=== PATIENT | male | born 1940 | race Caucasian/White ===

== ENCOUNTER 2017-06-01 21:07 | Emergency (ER) | payer MEDICARE ==
[~2017-06-01] VITALS: Ht 172.7 cm; Wt 113.2 kg
[2017-06-01 21:11] VITALS: BP 151/78; PULSE 81; RESP 20; TEMP 101; O2SAT 93
[2017-06-01 21:15] VITALS: BP 151/78; PULSE 81; RESP 20; TEMP 101; O2SAT 93
[2017-06-01] MEDS ORDERED: CEFEPIME INJ 2,000 MG in SODIUM CHLORIDE 0.9% INJ 100 ML IV STA (21:22)
--- NOTE | 2017-06-01 21:31 | PD ---
HPI Chief Complaint: General Weakness Time Seen by Provider: 21:22 Travel History International Travel<30 days: No Contact w/Intl Traveler<30days: No Traveled to known affect area: No History of Present Illness HPI pt c/o of one day of gen weakness, cough, and also a suprapubic discomfort though he denies n/v/d/backpain/cp/[place]......no aggravating/alleviating factors. 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), htn, hypercholesterol PFSH Social History Tobacco Use: No Allergies-Medications (Allergen,Severity, Reaction): Coded Allergies: No Known Allergies (Verified Allergy, Unknown, 06/01/17) Reported Meds & Prescriptions Reported Meds & Active Scripts Active Augmentin (Amoxicillin-Clavulanate) 875-125 Mg Tab 1 Tab PO BID Reported Multi-Vitamin Daily (Multiple Vitamin) 1 Tab Tab 1 Tab PO DAILY Metoprolol Tartrate 50 Mg Tab 50 Mg PO DAILY Eliquis (Apixaban) 5 Mg Tab 5 Mg PO BID Crestor (Rosuvastatin Calcium) 20 Mg Tab 20 Mg PO DAILY Review of Systems Except as stated in HPI: all other systems reviewed are Neg General / Constitutional: Positive: Fever Eyes: No: Visual changes HENT: No: Headaches Cardiovascular: No: Chest Pain or Discomfort Respiratory: Positive: Cough Gastrointestinal: No: Abdominal Pain Genitourinary: Positive: Frequency Musculoskeletal: No: Pain Skin: No Rash Neurologic: No: Weakness Psychiatric: No: Depression Endocrine: No: Polydipsia Hematologic/Lymphatic: No: Easy Bruising Physical Exam Narrative GENERAL: SKIN: Warm and dry. HEAD: Atraumatic. Normocephalic. EYES: Pupils equal and round. No scleral icterus. No injection or drainage. ENT: No nasal bleeding or discharge. Mucous membranes pink and moist. NECK: Trachea midline. No JVD. CARDIOVASCULAR: Regular rate and rhythm. RESPIRATORY: No accessory muscle use. Clear to auscultation. Breath sounds equal bilaterally. GASTROINTESTINAL: Abdomen soft, non-tender, nondistended. MUSCULOSKELETAL: Extremities without clubbing, cyanosis, or edema. No obvious deformities. NEUROLOGICAL: Awake and alert. No obvious cranial nerve deficits. Motor grossly within normal limits. Five out of 5 muscle strength in the arms and legs. Normal speech. PSYCHIATRIC: Appropriate mood and affect; insight and judgment normal. Data Data Last Documented VS Orders Orders Complete Blood Count With Diff (06/01/17 21:22) Comprehensive Metabolic Panel (06/01/17 21:22) Prothrombin Time / Inr (Pt) (06/01/17 21:22) Act Partial Throm Time (Ptt) (06/01/17 21:22) Lactic Acid Sepsis Protocol (06/01/17 21:22) Lipase (06/01/17 21:22) Troponin I (06/01/17:) Urinalysis - C+S If Indicated (06/01/17 21:22) Influenzae A/B Antigen (06/01/17 21:22) Blood Culture (06/01/17 21:22) Chest, Single Ap (06/01/17:) Blood Glucose (06/01/17 21:22) Ecg Monitoring (06/01/17:22) Iv Access Insert/Monitor (06/01/17 21:22) Oximetry (06/01/17 21:22) Oxygen Administration (06/01/17:22) Ct Abd/Pel W/O Iv Contrast (06/01/17 21:22) Cefepime Inj (Maxipime Inj) (06/01/17 21:22) Acetaminophen (Tylenol) (06/01/17 21:45) Urine Culture (06/01/17 21:30) Ed Discharge Order (06/01/17 23:02) Labs Laboratory Tests Test 06/01/17 21:30 White Blood Count 7.6 TH/MM3 Red Blood Count 4.24 MIL/MM3 Hemoglobin 13.1 GM/DL Hematocrit 38.9 % Mean Corpuscular Volume 91.7 FL Mean Corpuscular Hemoglobin 31.0 PG Mean Corpuscular Hemoglobin Concent 33.8 % Red Cell Distribution Width 15.0 % Platelet Count 164 TH/MM3 Mean Platelet Volume 7.8 FL Neutrophils (%) (Auto) 74.7 % Lymphocytes (%) (Auto) 15.4 % Monocytes (%) (Auto) 9.4 % Eosinophils (%) (Auto) 0.3 % Basophils (%) (Auto) 0.2 % Neutrophils # (Auto) 5.7 TH/MM3 Lymphocytes # (Auto) 1.2 TH/MM3 Monocytes # (Auto) 0.7 TH/MM3 Eosinophils # (Auto) 0.0 TH/MM3 Basophils # (Auto) 0.0 TH/MM3 CBC Comment DIFF FINAL Differential Comment Prothrombin Time 11.1 SEC Prothromb Time International Ratio 1.0 RATIO Activated Partial Thromboplast Time 31.2 SEC Urine Collection Type CLEAN CATCH Urine Color YELLOW Urine Turbidity MOD Urine pH 6.0 Urine Specific [place] 1.020 Urine Protein 30 mg/dL Urine Glucose (UA) NEG mg/dL Urine Ketones NEG mg/dL Urine Occult Blood MOD Urine Nitrite NEG Urine Bilirubin NEG Urine Leukocyte Esterase MOD Urine RBC 15-19 /hpf Urine WBC 50-99 /hpf Urine WBC Clumps FEW Urine Squamous Epithelial Cells 0-5 /hpf Urine Bacteria OCC /hpf Urine Mucus FEW /lpf Microscopic Urinalysis Comment CULTURE INDICATED Blood Urea Nitrogen 14 MG/DL Creatinine 1.20 MG/DL Random Glucose 148 MG/DL Total Protein 7.4 GM/DL Albumin 3.0 GM/DL Calcium Level 7.9 MG/DL Alkaline Phosphatase 96 U/L Aspartate Amino Transf (AST/SGOT) 28 U/L Alanine Aminotransferase (ALT/SGPT) 33 U/L Total Bilirubin 0.5 MG/DL Sodium Level 136 MEQ/L Potassium Level 3.8 MEQ/L Chloride Level 102 MEQ/L Carbon Dioxide Level 24.9 MEQ/L Anion Gap 9 MEQ/L Estimat Glomerular Filtration Rate 59 ML/MIN Lactic Acid Level 1.2 mmol/L Troponin I LESS THAN 0.02 NG/ML Lipase 155 U/L [facility] Medical Decision Making Medical Screen Exam Complete: Yes Emergency Medical Condition: Yes Medical Record Reviewed: Yes Differential Diagnosis uti v pna v colitis v divertic Narrative Course lactic acid was not elevated, neither wast there any leukocytosis, nor any left shift. ct neg for colitis but does show some diverticulosis without - itis.....patient given cefepime iv and sent home with augmentin Sepsis Criteria SIRS Criteria (2 or more): Temp > 100.9 or < 96.8, RR > 20 or PaCO2 < 32 Diagnosis Primary Impression: ascending cystitis Additional Impression: diverticulosis Patient Instructions: Diverticulosis Diet (GEN), General Instructions, Urinary Tract Infection in Men (DC) Scripts Amoxicillin-Clavulanate (Augmentin) 875-125 Mg Tab 1 TAB PO BID for Infection, #20 TAB 0 Refills Prov: Bo Mike MD 06/01/17 Disposition: 01 DISCHARGE HOME Condition: Stable Bo Mike MD Jun 01, 2017 21:31
[2017-06-01 21:35] VITALS: O2SAT 95
[2017-06-01] MEDS ORDERED: ACETAMINOPHEN 500 MG CPLT PO ONE (21:45)
--- NOTE | 2017-06-01 21:52 | RADRPT ---
EXAM DATE/TIME: 06/01/2017 21:28 [facility] COMPARISON: No previous studies available for comparison. INDICATIONS : Cough, short of breath, and fever. MEDICAL HISTORY : None. SURGICAL HISTORY : None. ENCOUNTER: Initial ACUITY: 3 days PAIN SCORE: 0/10 LOCATION: Bilateral chest FINDINGS: A single view of the chest demonstrates the lungs to be symmetrically aerated without evidence of mas s, infiltrate or effusion. The cardiomediastinal contours are unremarkable. Osseous structures are intact. CONCLUSION: No acute disease. Yobani Nieves MD on June 01, 2017 at 21:50 Board Certified Radiologist. This report was verified electronically.
[2017-06-01] MEDS ORDERED: ROSU20 PO (21:59)
[2017-06-01] MEDS ORDERED: APIX5TAB PO (21:59)
[2017-06-01] MEDS ORDERED: METO50TA PO (21:59)
[2017-06-01] MEDS ORDERED: MULT-65 PO (21:59)
[2017-06-01 22:00] VITALS: BP 173/70; PULSE 77; RESP 20; TEMP 98.5; O2SAT 96
[2017-06-01 22:06] LABS: AUTOMATED NEUTROPHIL # 5.7 TH/MM3 (1.8-7.7); BASOPHIL % 0.2 % (0.0-2.0); BLOOD, URINE MOD (NEG); EOSINOPHIL % 0.3 % (0.0-4.0); GLUCOSE,URINE NEG (NEG); HEMATOCRIT 38.9 % (39.0-51.0); KETONE, URINE NEG (NEG); LYMPH % 15.4 % (9.0-44.0); LYMPHOCYTE # 1.2 TH/MM3 (1.0-4.8); MEAN CELL VOLUME 91.7 FL (80.0-100.0); MEAN CORPUSCULAR HGB CONC 33.8 % (32.0-36.0); MONO % 9.4 % (0.0-8.0); NEUT % 74.7 % (16.0-70.0); NITRITE,URINE NEG (NEG); PLATELET COUNT 164 TH/MM3 (150-450); RED BLOOD COUNT 4.24 MIL/MM3 (4.50-5.90); WHITE BLOOD COUNT 7.6 TH/MM3 (4.0-11.0)
[2017-06-01 22:07] LABS: HEMO FLAGS DIFF FINAL
[2017-06-01 22:12] LABS: CHLORIDE 102 MEQ/L (98-107); POTASSIUM 3.8 MEQ/L (3.5-5.1); SODIUM (NA) 136 MEQ/L (136-145)
[2017-06-01 22:13] LABS: METHOD OF COLLECTION CLEAN CATCH; MUCUS URINE FEW /lpf (OCC); URINE COLOR YELLOW (YELLW/STRAW)
--- NOTE | 2017-06-01 22:13 | RADRPT ---
EXAM DATE/TIME: 06/01/2017 21:45 [facility] COMPARISON: No previous studies available for comparison. INDICATIONS : Generalized weakness. Suprapubic pain and frequent urination. ORAL CONTRAST: No oral contrast ingested. RADIATION DOSE: 24.49 CTDIvol (mGy) MEDICAL HISTORY : None SURGICAL HISTORY : Total knee replacement, left. Fusion, lumbar.Hip replacement ENCOUNTER: Initial ACUITY: 1 day PAIN SCALE: 0/10 LOCATION: suprapubic TECHNIQUE: Volumetric scanning of the abdomen and pelvis was performed. Using automated exposure control and ad justment of the mA and/or kV according to patient size, radiation dose was kept as low as reasonably achievable to obtain optimal diagnostic quality images. DICOM format image data is available electro nically for review and comparison. FINDINGS: Left total hip arthroplasty. There is scarring at both lung bases. Liver, gallbladder, pancreas, adre nals, kidneys unremarkable. Calcified splenic granulomas are noted. There is atherosclerotic calcific ation of the aorta and iliac vessels. Urinary bladder unremarkable. Diverticulosis of the sigmoid and descending colon. No diverticulitis. No obstruction, free fluid, or free air. Appendix normal. No ad enopathy. Small hiatal hernia. Degenerative changes of the spine are present. Prostate unremarkable. CONCLUSION: 1. Basilar pulmonary scarring. 2. Diverticulosis. 3. Small hiatal hernia. 4. Calcified splenic granulomas. Yobani Nieves MD on June 01, 2017 at 22:09 Board Certified Radiologist. This report was verified electronically.
[2017-06-01 22:14] LABS: RBC, URINE 15-19 /hpf (0-3); SQUAMOUS EPITHELIAL CELL URINE 0-5 /hpf (0-5)
[2017-06-01 22:15] LABS: BACTERIA, URINE OCC /hpf
[2017-06-01 22:16] LABS: ANION GAP 9 MEQ/L (5-15); BICARBONATE 24.9 MEQ/L (21.0-32.0); BLOOD UREA NITROGEN 14 MG/DL (7-18); COMMENT (UR) CULTURE INDICATED; CULTURE IF INDICATED CULTURE INDICATED
[2017-06-01 22:19] LABS: ALT (GPT) 33 U/L (12-78); AST (GOT) 28 U/L (15-37); GLOMERULAR FILTRATION RATE 59 ML/MIN (>89)
[2017-06-01 22:21] LABS: TOTAL BILIRUBIN ADULT 0.5 MG/DL (0.2-1.0)
[2017-06-01 22:22] LABS: ALKALINE PHOSPHATASE 96 U/L (45-117)
[2017-06-01 22:58] LABS: APTT (PATIENT) 31.2 SEC (24.3-30.1); PROTHROMBIN TIME - PATIENT 11.1 SEC (9.8-11.6)
[2017-06-01] MEDS ORDERED: AUGM875T3 PO (23:03)
== END 2017-06-01 23:28 | disposition home or self-care (01) ==
LOC: PHED 21:07
DX: N30.90 Cystitis, unspecified without hematuria (principal); B96.20 Unspecified Escherichia coli [E. coli] as the cause of diseases classified elsewhere; K57.30 Diverticulosis of large intestine without perforation or abscess without bleeding; I10 Essential (primary) hypertension; E78.00 Pure hypercholesterolemia, unspecified; Z79.01 Long term (current) use of anticoagulants; Z86.711 Personal history of pulmonary embolism
CPT/HCPCS: 71010; 74176; 80053; 81001; 83605; 83690; 84484; 85025; 85610; 85730; 87040; 87077; 87086; 87186; 87205; 87804; 96365; 99285; J0692